=== PATIENT | female | born 1945 | race Caucasian/White ===

== ENCOUNTER 2017-07-04 13:12 | Observation (INO) | payer MEDICARE ==
[~2017-07-04] VITALS: Ht 162.6 cm; Wt 74.8 kg
[~2017-07-04 13:12] MED LIST: ALBU8.5H8 IH; LEVO500T2 PO; METH4TAB3 PO; MOME13HF2 IH; TIOT18CA3 IH
[2017-07-04] MEDS ORDERED: ONDANSETRON HCL 4 MG/2 ML VIAL ONE ×2 (13:35→16:30)
[2017-07-04] MEDS ORDERED: SODIUM CHLORIDE 0.9% 1000ML 1,000 ML IV ONE ×2 (13:35→23:49)
[2017-07-04 14:04] LABS: BASOPHILS % (AUTO) 0.3 % (0.0-5.0); EOSINOPHILS % (AUTO) 0.2 % (0.0-8.0); HEMATOCRIT 46.9 % (36-48); LYMPHOCYTES % (AUTO) 8.6 % (21.0-51.0); MEAN CORPUSCULAR HEMOGLOBIN 30.7 pg (27.0-33.0); MEAN CORPUSCULAR HGB CONC 33.1 g/dL (32.0-36.0); MEAN CORPUSCULAR VOLUME 92.7 fL (79-99); MONOCYTES % (AUTO) 4.8 % (3.0-13.0); NEUTROPHILS % (AUTO) 86.1 % (40.0-77.0); PLATELET COUNT (AUTO) 342 K/uL (130-400); RED BLOOD CELL COUNT(AUTO) 5.06 MIL/uL (4.00-5.50); RED CELL DISTRIBUTION WIDTH 13.9 % (11.0-15.5)
[2017-07-04 14:12] LABS: CREATININE 0.8 mg/dL (0.5-1.5)
[2017-07-04 14:18] LABS: ALBUMIN 4.1 g/dL (3.5-5.0); BILIRUBIN,TOTAL 0.4 mg/dL (0.2-1.0); TOTAL PROTEIN, SERUM 7.6 g/dL (6.0-8.3)
[2017-07-04] MEDS ORDERED: SODIUM CHLORIDE 0.9% 1000ML 2,000 ML IV ONE (14:18)
[2017-07-04 14:31] LABS: CREATINE KINASE MB 2.2 ng/mL (0.5-3.6)
[2017-07-04] MEDS ORDERED: CEFTRIAXONE SODIUM 1 GM ONE (14:56)
[2017-07-04 15:03] LABS: APPEARANCE,URINE Clear (CLEAR); BILIRUBIN,URINE Negative (NEGATIVE); COLOR,URINE Yellow (YELLOW); GLUCOSE, URINE (UA) 250 mg/dL (NEGATIVE); KETONES,URINE Negative (NEGATIVE); LEUKOCYTE ESTERASE ,URINE Trace (NEGATIVE); NITRATE,URINE Negative (NEGATIVE); OCCULT BLOOD,URINE Trace (NEGATIVE); PH,URINE 7.5 (5.0-8.0); PROTEIN,URINE Negative (NEGATIVE); UROBILINOGEN,URINE 0.2 mg/dL (0.2-1.0)
[2017-07-04 15:27] LABS: BACTERIA,URINE Few /HPF (None Seen); RBC,URINE None Seen /HPF (0-1); SQUAMOUS EPITHELIAL CELL,UR 0-2 /LPF (0-2); WBC,URINE None Seen /HPF (0-1)
[2017-07-04] MEDS ORDERED: LEVOFLOXACIN 750 MG/D5W 150 ML 150 ML ONE (16:30)
[2017-07-04] MEDS ORDERED: MAG HYDROX/AL HYDROX/SIMETH ES 30 ML SUSP UDCUP PO PRN (16:45)
[2017-07-04] MEDS ORDERED: ACETAMINOPHEN 325 MG TAB PO PRN ×2 (16:45)
[2017-07-04] MEDS ORDERED: ONDANSETRON HCL 4 MG/2 ML VIAL IV PRN (16:45)
[2017-07-04] MEDS ORDERED: GUAIFENESIN-DM 200/20 MG 10 ML PO PRN (16:45)
[2017-07-04] MEDS ORDERED: LACTULOSE 20 GM/30 ML UDCUP PO PRN (16:45)
[2017-07-04 21:35] VITALS: BP 177/77
[2017-07-04] MEDS ORDERED: HYDRALAZINE HCL 20 MG/ML VIAL ONE (22:37)
[2017-07-04] MEDS: OSELTAMIVIR PHOSPHATE 75 MG CAP PO SCH (22:39)
[2017-07-04] MEDS ORDERED: HYDRALAZINE HCL 20 MG/ML VIAL IV PRN (22:45)
[2017-07-04 23:10] VITALS: BP 172/70
[2017-07-04] MEDS ORDERED: MORPHINE SULFATE 2 MG/ML 1ML SYG IVP PRN ×2 (23:45)
[2017-07-04] MEDS ORDERED: POTASSIUM CHLORIDE 20 MEQ ERTAB PO PRN (23:45)
[2017-07-04] MEDS ORDERED: POTASSIUM CHLORIDE 10% ELIXIR 20 MEQ/15 ML UDCUP PO PRN (23:45)
[2017-07-04] MEDS: SODIUM CHLORIDE 0.9% 1000ML 1,000 ML IV SCH (23:45)
[2017-07-04] MEDS ORDERED: POTASSIUM CHLORIDE 20MEQ/100ML 100 ML IV PRN (23:45)
[2017-07-04] MEDS ORDERED: SODIUM CHLORIDE 0.9% 1000ML 1,000 ML IV SCH (23:45)
[2017-07-04] MEDS ORDERED: IPRATROPIUM/ALBUTEROL SULFATE 3 ML SOLUTION IH PRN (23:45)
[2017-07-04] MEDS ORDERED: LIDOCAINE HCL-MPF 1% 2ML VIAL IVP PRN (23:45)
[2017-07-05 03:20] VITALS: BP 121/66
[2017-07-05 05:06] LABS: HEMATOCRIT 41.9 % (36-48); MEAN CORPUSCULAR HEMOGLOBIN 31.4 pg (27.0-33.0); MEAN CORPUSCULAR HGB CONC 34.2 g/dL (32.0-36.0); NUCLEATED RED BLOOD CELLS 0.1 % (0.0-0.19); PLATELET COUNT (AUTO) 336 K/uL (130-400); RED BLOOD CELL COUNT(AUTO) 4.56 MIL/uL (4.00-5.50); RED CELL DISTRIBUTION WIDTH 13.9 % (11.0-15.5)
[2017-07-05 05:23] LABS: ALANINE AMINOTRANSFERASE 20 U/L (12-78); ALBUMIN 3.5 g/dL (3.5-5.0); ASPARTATE AMINOTRANSFERASE 19 U/L (10-37); BILIRUBIN,TOTAL 0.5 mg/dL (0.2-1.0); CARBON DIOXIDE 27 mmol/L (21-32); CHLORIDE 102 mmol/L (101-111); CREATINE KINASE MB 4.1 ng/mL (0.5-3.6); CREATINE KINASE, TOTAL 69 U/L (21-232); CREATININE 0.8 mg/dL (0.5-1.5); GLOMERULAR FILTR. RATE CALC 75 mL/min (>60); GLUCOSE,RANDOM 124 mg/dL (70-105); LIPASE 205 U/L (114-286); MYOGLOBIN 48 ng/mL (10-92); POTASSIUM 3.8 mmol/L (3.5-5.1); SODIUM SERUM 140 mmol/L (136-145); TOTAL PROTEIN, SERUM 6.6 g/dL (6.0-8.3); TROPONIN I < 0.04 ng/mL (0.00-0.06); UREA NITROGEN, BLOOD 10 mg/dL (7-18)
[2017-07-05 06:00] LABS: BAND NEUTROPHILS % (MANUAL) 9 % (0-2); LYMPHOCYTES % (MANUAL) 17 % (22-44); MAN.DIFF COMMENT-IMPRESSION MANUAL DIFFERENTIAL; MONOCYTES % (MANUAL) 2 % (2-9); PLATELET MORPHOLOGY COMMENT ADEQUATE; REACTIVE LYMPHOCYTES 1 % (0-0); SEGMENTED NEUTROPHILS % 71 % (40-70)
[2017-07-05 08:00] VITALS: BP 125/52
[2017-07-05 08:27] LABS: HEMATOCRIT 42.8 % (36-48); MEAN CORPUSCULAR HEMOGLOBIN 31.4 pg (27.0-33.0); MEAN CORPUSCULAR HGB CONC 34.3 g/dL (32.0-36.0); MEAN CORPUSCULAR VOLUME 91.4 fL (79-99); PLATELET COUNT (AUTO) 334 K/uL (130-400); RED BLOOD CELL COUNT(AUTO) 4.68 MIL/uL (4.00-5.50); RED CELL DISTRIBUTION WIDTH 14.1 % (11.0-15.5); WHITE BLOOD COUNT (AUTO) 14.5 K/uL (4.8-10.8)
[2017-07-05 08:59] LABS: CARBON DIOXIDE 27 mmol/L (21-32); CHLORIDE 105 mmol/L (101-111); CREATINE KINASE MB 3.9 ng/mL (0.5-3.6); CREATINE KINASE, TOTAL 70 U/L (21-232); GLOMERULAR FILTR. RATE CALC 58 mL/min (>60); GLUCOSE,RANDOM 121 mg/dL (70-105); MYOGLOBIN 63 ng/mL (10-92); POTASSIUM 3.6 mmol/L (3.5-5.1); SODIUM SERUM 141 mmol/L (136-145); TROPONIN I < 0.04 ng/mL (0.00-0.06); UREA NITROGEN, BLOOD 12 mg/dL (7-18)
[2017-07-05] MEDS ORDERED: FORMOTEROL IH SCH (09:00)
[2017-07-05] MEDS ORDERED: SUB TO IPRATROPIUM 0.5MG/2.5ML PER P&T IH SCH (09:00)
[2017-07-05] MEDS ORDERED: [UNRECOGNIZED DRUG - OTHER] IH SCH (09:00)
[2017-07-05] MEDS ORDERED: MOMETASONE IH SCH (09:00)
[2017-07-05] MEDS: OSELTAMIVIR PHOSPHATE 75 MG CAP PO SCH ×2 (09:07→20:21)
[2017-07-05 09:14] LABS: BAND NEUTROPHILS % (MANUAL) 4 % (0-2); LYMPHOCYTES % (MANUAL) 7 % (22-44); MAN.DIFF COMMENT-IMPRESSION MANUAL DIFFERENTIAL; MONOCYTES % (MANUAL) 7 % (2-9); PLATELET MORPHOLOGY COMMENT ADEQUATE; REACTIVE LYMPHOCYTES 2 % (0-0); SEGMENTED NEUTROPHILS % 80 % (40-70)
[2017-07-05] MEDS: SODIUM CHLORIDE 0.9% 1000ML 1,000 ML IV SCH ×2 (09:45→19:45)
[2017-07-05] MEDS: FAMOTIDINE/PF 20 MG/2 ML VIAL IV SCH (10:11)
[2017-07-05 11:42] VITALS: BP 115/72
[2017-07-05] MEDS: LEVOFLOXACIN 500 MG/D5W 100 ML 100 ML IV SCH (13:21)
[2017-07-05 16:41] VITALS: BP 147/76
[2017-07-05 19:10] VITALS: BP 113/68
[2017-07-05] MEDS: IPRATROPIUM/ALBUTEROL SULFATE 3 ML SOLUTION IH SCH ×2 (19:15→19:17)
[2017-07-05] MEDS: BUDESONIDE 0.5 MG/2 ML INH IH SCH (19:15)
[2017-07-05 23:15] VITALS: BP 154/68
[2017-07-06 03:25] VITALS: BP 124/77
[2017-07-06] MEDS: SODIUM CHLORIDE 0.9% 1000ML 1,000 ML IV SCH (05:45)
[2017-07-06] MEDS: IPRATROPIUM/ALBUTEROL SULFATE 3 ML SOLUTION IH SCH ×2 (06:47→11:38)
[2017-07-06 06:49] LABS: HEMATOCRIT 39.8 % (36-48); MEAN CORPUSCULAR HEMOGLOBIN 32.6 pg (27.0-33.0); MEAN CORPUSCULAR HGB CONC 35.6 g/dL (32.0-36.0); MEAN CORPUSCULAR VOLUME 91.6 fL (79-99); PLATELET COUNT (AUTO) 349 K/uL (130-400); RED BLOOD CELL COUNT(AUTO) 4.35 MIL/uL (4.00-5.50); RED CELL DISTRIBUTION WIDTH 14.1 % (11.0-15.5); WHITE BLOOD COUNT (AUTO) 9.1 K/uL (4.8-10.8)
[2017-07-06] MEDS: BUDESONIDE 0.5 MG/2 ML INH IH SCH (07:01)
[2017-07-06 07:20] LABS: CREATININE 0.8 mg/dL (0.5-1.5); POTASSIUM 3.7 mmol/L (3.5-5.1)
[2017-07-06] MEDS: FAMOTIDINE/PF 20 MG/2 ML VIAL IV SCH (07:54)
[2017-07-06] MEDS: OSELTAMIVIR PHOSPHATE 75 MG CAP PO SCH (07:54)
[2017-07-06 08:00] VITALS: BP 143/75
[2017-07-06 12:00] VITALS: BP 117/57
[2017-07-06] MEDS: LEVOFLOXACIN 500 MG/D5W 100 ML 100 ML IV SCH (13:00)
== END 2017-07-06 13:30 | disposition home or self-care (01) ==
LOC: EDH 13:12 → EDHIP 16:33 → 3DH 21:24
PROVIDERS: ADMIT Family Medicine; ATTEND Family Medicine
DX: R10.9 Unspecified abdominal pain (principal); K52.9 Noninfective gastroenteritis and colitis, unspecified; J44.9 Chronic obstructive pulmonary disease, unspecified; Z88.8 Allergy status to other drugs, medicaments and biological substances; F17.210 Nicotine dependence, cigarettes, uncomplicated; J96.10 Chronic respiratory failure, unspecified whether with hypoxia or hypercapnia
CPT/HCPCS: 36415 ×3; 70450; 71045; 74176; 80048 ×2; 80053 ×2; 81001; 82550 ×3; 82553 ×3; 82948; 83605 ×2; 83690 ×2; 83874 ×2; 84484 ×3; 85025 ×3; 85027; 87040 ×2; 87804 ×2; 93005 ×5; 94640 ×4; 94664; 96365; 96375 ×2; 96376; 99285; G0378 ×45; J0360; J0696; J1956 ×2; J2405 ×3; J3490 ×2; J7030 ×3

== ENCOUNTER → 2018-06-02 | Outpatient (CLI) | payer MEDICARE ==
[~2018-06-02] MED LIST changes: -ALBU8.5H8 IH; +ALBU90AE IH; +FLUT1BLS3 IH; -LEVO500T2 PO; +LORA10TA7 PO; -METH4TAB3 PO; -MOME13HF2 IH; +THEO400T3 PO; -TIOT18CA3 IH
[2018-06-02 13:15] LABS: CREATININE 0.8 mg/dL (0.5-1.5)
== END | disposition home or self-care (01) ==
LOC: LAB 12:29
PROVIDERS: ATTEND Surgery
DX: K57.00 Diverticulitis of small intestine with perforation and abscess without bleeding (principal)
CPT/HCPCS: 36415; 82565; 84520

== ENCOUNTER → 2018-06-04 | Outpatient (CLI) | payer MEDICARE ==
[~2018-06-04] MED LIST changes: +IOHEXOL-350 75 ML VIAL IV ONE
== END | disposition home or self-care (01) ==
LOC: RAH 07:57
PROVIDERS: ATTEND Surgery
DX: I71.4 Abdominal aortic aneurysm, without rupture (principal); M51.36 Other intervertebral disc degeneration, lumbar region; M47.816 Spondylosis without myelopathy or radiculopathy, lumbar region; I70.8 Atherosclerosis of other arteries; N28.1 Cyst of kidney, acquired
CPT/HCPCS: 74177; Q9967

== ENCOUNTER → 2018-07-03 | Outpatient (CLI) | payer MEDICARE | END | disposition home or self-care (01) | LOC: RAH 08:48 | PROVIDERS: ATTEND Surgery | DX: I71.4 Abdominal aortic aneurysm, without rupture (principal); N28.1 Cyst of kidney, acquired | CPT/HCPCS: 74177; Q9967 ==

== ENCOUNTER 2018-07-27 07:00 | Day surgery (SDC) | payer MEDICARE ==
[2018-07-27] VITALS (9 sets, daily range): BP systolic 106–141; BP diastolic 40–64
[~2018-07-27] VITALS: Ht 160 cm; Wt 63.9 kg
[~2018-07-27 07:00] MED LIST changes: -IOHEXOL-350 75 ML VIAL IV ONE; +SODIUM CHLORIDE 0.9% 1000ML 1,000 ML IV ONE
[2018-07-27] MEDS ORDERED: PROPOFOL 10 MG/ML 20ML VIAL IV ONE (08:43)
[2018-07-27] MEDS ORDERED: PHENYLEPHRINE HCL 10 MG/ML 1ML VIAL IV ONE (09:01)
== END 2018-07-27 10:00 | disposition home or self-care (01) ==
LOC: ENDO 07:00 → DAH 07:00 → ENDO 10:00
PROVIDERS: ATTEND Surgery
DX: K57.33 Diverticulitis of large intestine without perforation or abscess with bleeding (principal); J44.9 Chronic obstructive pulmonary disease, unspecified
CPT/HCPCS: 45378; 74270; 93005; J2370; J2704; J7030

== ENCOUNTER 2018-09-18 16:11 | Emergency (ER) | payer MEDICARE ==
[~2018-09-18 16:11] MED LIST changes: -SODIUM CHLORIDE 0.9% 1000ML 1,000 ML IV ONE
[2018-09-18 17:49] LABS: CREATININE 0.7 mg/dL (0.5-1.5); POTASSIUM 4.2 mmol/L (3.5-5.1)
[2018-09-18 17:55] LABS: ALBUMIN 3.3 g/dL (3.5-5.0); BILIRUBIN,TOTAL 0.2 mg/dL (0.2-1.0); TOTAL PROTEIN, SERUM 7.3 g/dL (6.0-8.3)
[2018-09-18 18:21] LABS: BASOPHILS % (AUTO) 0.2 % (0.0-5.0); EOSINOPHILS % (AUTO) 0.4 % (0.0-8.0); HEMATOCRIT 41.9 % (36-48); LYMPHOCYTES % (AUTO) 17.4 % (21.0-51.0); MEAN CORPUSCULAR HEMOGLOBIN 30.6 pg (27.0-33.0); MEAN CORPUSCULAR VOLUME 90.2 fL (79-99); MONOCYTES % (AUTO) 6.6 % (3.0-13.0); NEUTROPHILS % (AUTO) 75.4 % (40.0-77.0); NUCLEATED RED BLOOD CELLS 0.1 % (0.0-0.19); PLATELET COUNT (AUTO) 386 K/uL (130-400); RED BLOOD CELL COUNT(AUTO) 4.65 MIL/uL (4.00-5.50); RED CELL DISTRIBUTION WIDTH 16.1 % (11.0-15.5); WHITE BLOOD COUNT (AUTO) 13.9 K/uL (4.8-10.8)
[2018-09-18] MEDS ORDERED: IOHEXOL-350 75 ML VIAL IV ONE (18:34)
[2018-09-18 18:36] LABS: APPEARANCE,URINE Clear (CLEAR); BILIRUBIN,URINE Negative (NEGATIVE); COLOR,URINE Yellow (YELLOW); GLUCOSE, URINE (UA) Negative (NEGATIVE); KETONES,URINE Negative (NEGATIVE); LEUKOCYTE ESTERASE ,URINE Large (NEGATIVE); NITRATE,URINE Negative (NEGATIVE); OCCULT BLOOD,URINE Nonhemolyzed Trace (NEGATIVE); PH,URINE 5.5 (5.0-8.0); PROTEIN,URINE Negative (NEGATIVE); UROBILINOGEN,URINE 0.2 mg/dL (0.2-1.0)
[2018-09-18 18:49] LABS: BACTERIA,URINE Rare /HPF (None Seen)
[2018-09-18 18:50] LABS: SQUAMOUS EPITHELIAL CELL,UR Rare /HPF (0-2)
== END 2018-09-18 19:11 | disposition home or self-care (01) ==
LOC: EDH 16:11
DX: N39.0 Urinary tract infection, site not specified (principal); J45.909 Unspecified asthma, uncomplicated; Z98.890 Other specified postprocedural states; Z72.0 Tobacco use; Z88.8 Allergy status to other drugs, medicaments and biological substances
CPT/HCPCS: 36415; 74176; 80053; 81001; 83690; 85025; 99285; Q9967

== ENCOUNTER 2019-03-22 06:30 | Inpatient (IN) | payer MEDICARE ==
[~2019-03-22] VITALS: Ht 160 cm; Wt 63.5 kg
[2019-03-22] VITALS (17 sets, daily range): BP systolic 127–161; BP diastolic 59–89
[2019-03-22] MEDS ORDERED: TETANUS/DIPHTHERIA TOXOID [ADULT] 0.5 ML VIAL IM ONE (06:40)
[2019-03-22] MEDS ORDERED: ONDANSETRON HCL 4 MG/2 ML VIAL ONE (06:57)
[2019-03-22] MEDS ORDERED: HYDROMORPHONE 1 MG/1 ML AMP ONE (06:58)
[2019-03-22 07:07] LABS: BASOPHILS % (AUTO) 0.8 % (0.0-5.0); LYMPHOCYTES % (AUTO) 26.9 % (21.0-51.0); MEAN CORPUSCULAR HEMOGLOBIN 31.5 pg (27.0-33.0); MEAN CORPUSCULAR HGB CONC 33.7 g/dL (32.0-36.0); MEAN CORPUSCULAR VOLUME 93.6 fL (79-99); NEUTROPHILS % (AUTO) 61.3 % (40.0-77.0); PLATELET COUNT (AUTO) 334 K/uL (130-400); RED BLOOD CELL COUNT(AUTO) 4.17 MIL/uL (4.00-5.50); RED CELL DISTRIBUTION WIDTH 14.3 % (11.0-15.5); WHITE BLOOD COUNT (AUTO) 12.2 K/uL (4.8-10.8)
[2019-03-22 07:11] LABS: CREATININE 0.7 mg/dL (0.5-1.5); POTASSIUM 3.9 mmol/L (3.5-5.1)
[2019-03-22] MEDS ORDERED: LIDOCAINE HCL 1% 20 ML VIAL ONE (07:11)
[2019-03-22] MEDS ORDERED: BUPIVACAINE/PF 0.5% 30ML VIAL ONE (07:11)
[2019-03-22 07:12] LABS: PARTIAL THROMBOPLASTIN TIME 26.3 SEC (26.3-35.5); PROTHROMBIN TIME 10.5 SEC (9.6-11.6)
[2019-03-22 07:13] LABS: APPEARANCE,URINE Clear (CLEAR); BILIRUBIN,URINE Negative (NEGATIVE); COLOR,URINE Yellow (YELLOW); GLUCOSE, URINE (UA) Negative (NEGATIVE); KETONES,URINE Negative (NEGATIVE); LEUKOCYTE ESTERASE ,URINE Large (NEGATIVE); NITRATE,URINE Negative (NEGATIVE); OCCULT BLOOD,URINE Negative (NEGATIVE); PH,URINE 5.5 (5.0-8.0); PROTEIN,URINE Negative (NEGATIVE); UROBILINOGEN,URINE 0.2 mg/dL (0.2-1.0)
[2019-03-22 07:19] LABS: ALBUMIN 3.3 g/dL (3.5-5.0); BILIRUBIN,TOTAL 0.3 mg/dL (0.2-1.0); TOTAL PROTEIN, SERUM 6.6 g/dL (6.0-8.3)
[2019-03-22 07:22] LABS: BACTERIA,URINE Moderate /HPF (None Seen); RBC,URINE 0-1 /HPF (0-1); SQUAMOUS EPITHELIAL CELL,UR Rare /HPF (0-2)
[2019-03-22] MEDS: SODIUM CHLORIDE 0.9% 1000ML 1,000 ML IV SCH ×3 (07:36→22:20)
[2019-03-22] MEDS ORDERED: MORPHINE SULFATE 2 MG/ML 1ML SYG IV PRN (07:45)
[2019-03-22] MEDS ORDERED: LACTULOSE 20 GM/30 ML UDCUP PO PRN (07:45)
[2019-03-22] MEDS ORDERED: HYDRALAZINE HCL 20 MG/ML VIAL IV PRN (07:45)
[2019-03-22 08:26] LABS: HEMOGLOBIN A1C 5.8 % (4.0-6.0)
[2019-03-22] MEDS ORDERED: IPRATROPIUM/ALBUTEROL SULFATE 3 ML SOLUTION IH ONE ×2 (08:55→16:09)
[2019-03-22] MEDS: METOPROLOL TARTRATE 25 MG TAB PO SCH ×2 (09:00→22:19)
[2019-03-22] MEDS: FAMOTIDINE/PF 20 MG/2 ML VIAL IV SCH ×2 (09:00→22:19)
[2019-03-22] MEDS ORDERED: ZOSYN 3.375GM+NS 50ML 50 ML IV ONE ×3 (09:03→15:13)
[2019-03-22] MEDS ORDERED: METOPROLOL TARTRATE 25 MG TAB ONE (09:21)
[2019-03-22] MEDS ORDERED: FAMOTIDINE/PF 20 MG/2 ML VIAL IV ONE (09:21)
[2019-03-22] MEDS ORDERED: SODIUM CHLORIDE 0.9% 1000ML 1,000 ML IV ONE (09:22)
[2019-03-22] MEDS ORDERED: MORPHINE SULFATE 2 MG/ML 1ML SYG ONE (10:39)
[2019-03-22] MEDS ORDERED: MONT10TA24 PO (12:11)
[2019-03-22] MEDS ORDERED: BUDE10.2 PO (12:11)
[2019-03-22] MEDS ORDERED: ALBU8.5H8 PO (12:11)
[2019-03-22] MEDS ORDERED: UMEC62.5 PO (12:11)
[2019-03-22] MEDS ORDERED: LEVO5TAB13 PO (12:11)
[2019-03-22] MEDS ORDERED: GABA-531 PO (12:11)
[2019-03-22] MEDS ORDERED: TRAM50TA4 PO (12:11)
[2019-03-22] MEDS ORDERED: ZOSYN 3.375GM+NS 50ML 50 ML IV SCH (13:00)
[2019-03-22] MEDS: MORPHINE SULFATE 4 MG/1ML SYG IV PRN (14:02)
[2019-03-22] MEDS ORDERED: CEFAZOLIN SODIUM 1 GM VIAL IVP PRN (15:15)
[2019-03-22] MEDS ORDERED: LACTATED RINGERS 1000ML 1,000 ML IV ONE (15:35)
[2019-03-22] MEDS ORDERED: IPRATROPIUM/ALBUTEROL SULFATE 3 ML SOLUTION IH STA (16:07)
[2019-03-22] MEDS ORDERED: FENTANYL CITRATE PF 50 MCG/1 ML 2ML VIAL IVP ONE (16:15)
[2019-03-22] MEDS ORDERED: SUCCINYLCHOLINE 200MG/10ML SYR ONE (16:17)
[2019-03-22] MEDS ORDERED: ROCURONIUM 10MG/1ML SYR 10 MG/ML ML ONE (16:17)
[2019-03-22] MEDS ORDERED: PROPOFOL 10 MG/ML 20ML VIAL IV ONE (16:17)
[2019-03-22] MEDS ORDERED: LIDOCAINE PF 2% 5ML ABBOJECT ONE (16:17)
[2019-03-22] MEDS ORDERED: FENTANYL CITRATE PF 50 MCG/1 ML 2ML VIAL ONE ×3 (16:19→21:15)
[2019-03-22] MEDS ORDERED: ROPIVACAINE 0.5% 5MG/ML 30ML IJ ONE ×2 (16:22→18:56)
[2019-03-22] MEDS: ZOSYN 3.375GM+NS 50ML 50 ML IV SCH ×2 (16:54→22:19)
--- NOTE | 2019-03-22 17:02 | NUR ---
PT. IS SLEEPING RESTING COMFORTABLY AFTER 25 MCG OF FENTANYL IVP.
--- NOTE | 2019-03-22 18:15 | NUR ---
RECEIVED REPORT FROM SERGEY EVERETT. PT RESTING IN BED, AWAKE AND ALERT. PT DENIES PAIN, RESTING WELL. Addendum: 03/22/19 at 1838 by OLY KPAOOR RN RN Amended: Links added.
[2019-03-22] MEDS ORDERED: KETAMINE 50MG/ML SYRINGE 50 MG/ML DISP.SYRIN IV ONE (18:57)
[2019-03-22] MEDS ORDERED: MIDAZOLAM HCL 1 MG/ML 2ML VIAL ONE (18:59)
[2019-03-22] MEDS ORDERED: GLYCOPYRROLATE 1 MG/5 ML SYRINGE ONE (19:00)
[2019-03-22] MEDS ORDERED: CEFAZOLIN SODIUM 1 GM VIAL ONE (19:56)
[2019-03-22] MEDS ORDERED: NEOSTIGMINE 5MG/5ML SYR IV ONE (20:30)
[2019-03-22] MEDS ORDERED: LIDOCAINE HCL MPF 1% 5ML VIAL ONE (20:35)
[2019-03-22] MEDS ORDERED: LIDOCAINE HCL-MPF 1% 2ML VIAL IV PRN (21:00)
[2019-03-22] MEDS ORDERED: POTASSIUM CHLORIDE 10% ELIXIR 20 MEQ/15 ML UDCUP PO PRN (21:00)
[2019-03-22] MEDS ORDERED: DiphenhydrAMINE HCL 50 MG/ML VIAL IVP PRN (21:00)
[2019-03-22] MEDS ORDERED: TEMAZEPAM 15 MG CAPSULE PO PRN (21:00)
[2019-03-22] MEDS ORDERED: POTASSIUM CHLORIDE 20MEQ/100ML 100 ML IV PRN (21:00)
[2019-03-22] MEDS ORDERED: FERROUS FUMARATE 324 MG TABLET PO PRN (21:00)
[2019-03-22] MEDS ORDERED: CALCIUM CARBONATE 500 MG TABLET PO PRN (21:00)
[2019-03-22] MEDS ORDERED: POTASSIUM CHLORIDE 20 MEQ ERTAB PO PRN (21:00)
[2019-03-22] MEDS ORDERED: DIPHENHYDRAMINE HCL 25 MG CAPSULE PO PRN (21:00)
[2019-03-22] MEDS: ONDANSETRON HCL 4 MG/2 ML VIAL IV PRN (22:19)
[2019-03-22] MEDS: HYDROCODONE/ACETAMINOPHEN 5/325 MG TAB PO PRN (22:20)
[2019-03-23] VITALS (7 sets, daily range): BP systolic 84–134; BP diastolic 45–84
[2019-03-23] MEDS: MORPHINE SULFATE 4 MG/1ML SYG IV PRN ×2 (00:42→22:54)
[2019-03-23] MEDS ORDERED: SUB TO ALBUTEROL 2.5MG/3ML NEBULES PER P&T IH PRN (00:45)
[2019-03-23] MEDS: SODIUM CHLORIDE 0.9% 1000ML 1,000 ML IV SCH ×4 (03:14→16:51)
[2019-03-23] MEDS: HYDROCODONE/ACETAMINOPHEN 5/325 MG TAB PO PRN ×4 (03:45→20:29)
[2019-03-23] MEDS ORDERED: BUDESONIDE 0.5 MG/2 ML INH IH ONE (04:08)
[2019-03-23] MEDS ORDERED: ALBUTEROL SULFATE 0.083% 2.5 MG/3 ML INH IH ONE ×2 (04:08→10:15)
[2019-03-23] MEDS ORDERED: ALBUTEROL SULFATE 0.083% 2.5 MG/3 ML INH IH PRN (04:15)
[2019-03-23 05:02] LABS: HEMATOCRIT 37.9 % (36-48); MEAN CORPUSCULAR HEMOGLOBIN 31.4 pg (27.0-33.0); MEAN CORPUSCULAR HGB CONC 33.7 g/dL (32.0-36.0); PLATELET COUNT (AUTO) 342 K/uL (130-400); RED BLOOD CELL COUNT(AUTO) 4.07 MIL/uL (4.00-5.50); RED CELL DISTRIBUTION WIDTH 14.2 % (11.0-15.5)
[2019-03-23 05:11] LABS: CREATININE 0.8 mg/dL (0.5-1.5)
[2019-03-23] MEDS: ZOSYN 3.375GM+NS 50ML 50 ML IV SCH ×3 (05:14→20:28)
[2019-03-23] MEDS: METOPROLOL TARTRATE 25 MG TAB PO SCH ×2 (08:00→20:38)
[2019-03-23] MEDS: FAMOTIDINE/PF 20 MG/2 ML VIAL IV SCH ×2 (08:00→20:27)
[2019-03-23] MEDS: TRAMADOL HCL 50 MG TABLET PO SCH ×3 (08:01→20:28)
[2019-03-23] MEDS: ENOXAPARIN SODIUM 40 MG/0.4 ML SYRINGE SQ SCH (08:01)
[2019-03-23] MEDS: LEVOCETIRIZINE DIHYDROCHLORIDE 5 MG PO SCH (08:39)
[2019-03-23] MEDS: BUDESONIDE 0.5 MG/2 ML INH IH SCH ×2 (09:00→19:15)
[2019-03-23] MEDS ORDERED: SUB PER P&T FOR ASTHMA OR COPD RECOMMENDATION IH SCH (09:00)
[2019-03-23] MEDS: ONDANSETRON HCL 4 MG/2 ML VIAL IV PRN (10:34)
[2019-03-23] MEDS: KETOROLAC TROMETHAMINE 15MG/ML IV PRN ×2 (10:35→18:35)
[2019-03-23] MEDS ORDERED: UMECLIDINIUM BROMIDE PO SCH (12:00)
[2019-03-23] MEDS ORDERED: IPRATROPIUM/ALBUTEROL SULFATE 3 ML SOLUTION IH SCH (12:00)
[2019-03-23] MEDS: IPRATROPIUM/ALBUTEROL SULFATE 3 ML SOLUTION IH SCH ×3 (13:47→22:00)
--- NOTE | 2019-03-23 15:22 | NUR ---
DC PLAN PER PATIENT SHE IS INDEPENDENT, LIVES WITH SPOUSE, NO PROVIDER, AND HAS NEBULIZER AND OXYGEN. NEW REFERRAL FOR SNF PER MD, OPTIONS GIVEN TO PATIENT. CARLENE SIGNED, [facility] TO BE SENT REFERRAL. DME TO BE SET UP AFTER SNF FOR HOME USE. Addendum: 03/23/19 at 1525 by MARK JOSHUA RN CM Amended: Links added.
--- NOTE | 2019-03-23 16:43 | NUR ---
CM NOTE [facility]LENE SIGNED, REFERRAL SENT TO [facility]. ASCHI ZULETA, [facility] BANANA RIPENING ROOM SUPERVISOR MADE AWARE. PENDING REP TO SEE PATIENT
[2019-03-23] MEDS: METHYLPREDNISOLONE SOD SUCC 40MG/ML 1ML IVP SCH (20:28)
[2019-03-23] MEDS: GABAPENTIN 300 MG CAPSULE PO SCH (20:28)
[2019-03-23] MEDS: MONTELUKAST SODIUM 10 MG TAB PO SCH (20:28)
[2019-03-24] VITALS (7 sets, daily range): BP systolic 111–131; BP diastolic 51–75
[2019-03-24] MEDS: HYDROCODONE/ACETAMINOPHEN 5/325 MG TAB PO PRN ×4 (00:17→13:12)
[2019-03-24] MEDS: IPRATROPIUM/ALBUTEROL SULFATE 3 ML SOLUTION IH SCH ×6 (01:25→22:01)
[2019-03-24] MEDS: ZOSYN 3.375GM+NS 50ML 50 ML IV SCH (05:18)
[2019-03-24] MEDS: MORPHINE SULFATE 4 MG/1ML SYG IV PRN (05:20)
[2019-03-24 05:35] LABS: HEMATOCRIT 33.7 % (36-48); MEAN CORPUSCULAR HEMOGLOBIN 31.8 pg (27.0-33.0); MEAN CORPUSCULAR HGB CONC 33.9 g/dL (32.0-36.0); NUCLEATED RED BLOOD CELLS 0.1 % (0.0-0.19); PLATELET COUNT (AUTO) 307 K/uL (130-400); RED BLOOD CELL COUNT(AUTO) 3.59 MIL/uL (4.00-5.50); RED CELL DISTRIBUTION WIDTH 13.8 % (11.0-15.5); WHITE BLOOD COUNT (AUTO) 13.2 K/uL (4.8-10.8)
[2019-03-24 05:56] LABS: CREATININE 0.9 mg/dL (0.5-1.5)
[2019-03-24] MEDS: BUDESONIDE 0.5 MG/2 ML INH IH SCH ×2 (06:34→18:48)
[2019-03-24] MEDS: LEVOCETIRIZINE DIHYDROCHLORIDE 5 MG PO SCH (09:00)
[2019-03-24] MEDS: METOPROLOL TARTRATE 25 MG TAB PO SCH ×2 (09:00→20:46)
[2019-03-24] MEDS: TRAMADOL HCL 50 MG TABLET PO SCH ×2 (12:27→20:46)
[2019-03-24] MEDS: METHYLPREDNISOLONE SOD SUCC 40MG/ML 1ML IVP SCH ×2 (12:29→20:37)
[2019-03-24] MEDS ORDERED: LEVOFLOXACIN 500 MG/D5W 100 ML 100 ML IV SCH (12:30)
[2019-03-24] MEDS: ENOXAPARIN SODIUM 40 MG/0.4 ML SYRINGE SQ SCH (12:31)
--- NOTE | 2019-03-24 14:21 | NUR ---
CM Note: [facility] pending ins auth CM spoke to Sushma w/[facility], updated clinicals received this morning and already forwarded to insurance. Pt pending ins auth at this time. EMS arranged and faxed for today, primary nurse to call [facility] once pt ready to DC. Primary nurse aware. CM to cont to follow up.
[2019-03-24] MEDS: KETOROLAC TROMETHAMINE 15MG/ML IV PRN (20:46)
[2019-03-24] MEDS: GABAPENTIN 300 MG CAPSULE PO SCH (20:46)
[2019-03-24] MEDS: MONTELUKAST SODIUM 10 MG TAB PO SCH (20:46)
[2019-03-24] MEDS: FAMOTIDINE 20MG TAB 20 MG TAB PO SCH (20:46)
[2019-03-25] MEDS: IPRATROPIUM/ALBUTEROL SULFATE 3 ML SOLUTION IH SCH ×6 (01:28→21:53)
[2019-03-25] MEDS: KETOROLAC TROMETHAMINE 15MG/ML IV PRN (03:35)
[2019-03-25 04:00] VITALS: BP 123/52
[2019-03-25 05:38] LABS: BASOPHILS % (AUTO) 0.4 % (0.0-5.0); EOSINOPHILS % (AUTO) 1.8 % (0.0-8.0); HEMATOCRIT 29.2 % (36-48); LYMPHOCYTES % (AUTO) 24.6 % (21.0-51.0); MEAN CORPUSCULAR HGB CONC 34.3 g/dL (32.0-36.0); MEAN CORPUSCULAR VOLUME 93.2 fL (79-99); MONOCYTES % (AUTO) 10.5 % (3.0-13.0); NEUTROPHILS % (AUTO) 62.7 % (40.0-77.0); PLATELET COUNT (AUTO) 289 K/uL (130-400); RED BLOOD CELL COUNT(AUTO) 3.14 MIL/uL (4.00-5.50); RED CELL DISTRIBUTION WIDTH 14.1 % (11.0-15.5); WHITE BLOOD COUNT (AUTO) 9.7 K/uL (4.8-10.8)
[2019-03-25 05:49] LABS: CREATININE 0.8 mg/dL (0.5-1.5); POTASSIUM 3.8 mmol/L (3.5-5.1)
[2019-03-25] MEDS: BUDESONIDE 0.5 MG/2 ML INH IH SCH ×2 (06:14→18:55)
[2019-03-25 07:45] VITALS: BP 115/56
[2019-03-25] MEDS: HYDROCODONE/ACETAMINOPHEN 5/325 MG TAB PO PRN ×3 (08:26→21:27)
[2019-03-25] MEDS: METOPROLOL TARTRATE 25 MG TAB PO SCH ×2 (09:00→21:00)
[2019-03-25] MEDS: LEVOCETIRIZINE DIHYDROCHLORIDE 5 MG PO SCH (09:00)
--- NOTE | 2019-03-25 09:15 | NUR ---
PT NOTE: PATIENT AMBULATED 40FT MOD/MIN ASSISTX2 /C 1 STANDING REST BREAK IN-BETWEEN. PATIENT REQUIRES CONSTANT VC'S AND TACTILE CUES TO MAINTAIN SAFE USE OF AD AND PWB STATUS. PATIENT INSTRUCTED ON IMPORTANCE OF FOLLOWING GAIT PATTERN AND PWB STATUS FOR SAFE RECOVERY S/P SX. PATIENT WAS INSTRUCTED TO USE TTWB TO HELP REMIND HER NOT TO PUT DOWN ALL HER WEIGHT DOWN ON HER RLE. Addendum: 03/25/19 at 1139 by LANCE CALDERA PT Amended: Links added.
[2019-03-25 10:49] VITALS: BP 97/52
[2019-03-25] MEDS: LEVOFLOXACIN 250 MG/D5W 50ML IVPB SCH (12:14)
[2019-03-25] MEDS: TRAMADOL HCL 50 MG TABLET PO SCH ×2 (12:15→21:27)
[2019-03-25] MEDS: FAMOTIDINE 20MG TAB 20 MG TAB PO SCH (12:15)
[2019-03-25] MEDS: ENOXAPARIN SODIUM 40 MG/0.4 ML SYRINGE SQ SCH (12:16)
[2019-03-25] MEDS: METHYLPREDNISOLONE SOD SUCC 40MG/ML 1ML IVP SCH ×2 (12:28→21:27)
[2019-03-25 17:54] VITALS: BP 132/60
[2019-03-25 20:11] VITALS: BP 110/64
[2019-03-25] MEDS ORDERED: BISACODYL 10 MG SUPP.RECT RC PRN (21:00)
[2019-03-25] MEDS: GABAPENTIN 300 MG CAPSULE PO SCH (21:27)
[2019-03-25] MEDS: MONTELUKAST SODIUM 10 MG TAB PO SCH (21:27)
[2019-03-25 23:31] VITALS: BP 128/51
[2019-03-26] MEDS: IPRATROPIUM/ALBUTEROL SULFATE 3 ML SOLUTION IH SCH ×5 (02:42→18:17)
[2019-03-26 04:00] VITALS: BP 140/79
[2019-03-26 05:32] LABS: BASOPHILS % (AUTO) 0.4 % (0.0-5.0); HEMATOCRIT 29.9 % (36-48); LYMPHOCYTES % (AUTO) 23.9 % (21.0-51.0); MEAN CORPUSCULAR HEMOGLOBIN 31.8 pg (27.0-33.0); MEAN CORPUSCULAR HGB CONC 33.6 g/dL (32.0-36.0); MEAN CORPUSCULAR VOLUME 94.6 fL (79-99); MONOCYTES % (AUTO) 9.3 % (3.0-13.0); NEUTROPHILS % (AUTO) 64.4 % (40.0-77.0); PLATELET COUNT (AUTO) 299 K/uL (130-400); RED BLOOD CELL COUNT(AUTO) 3.16 MIL/uL (4.00-5.50); RED CELL DISTRIBUTION WIDTH 14.1 % (11.0-15.5); WHITE BLOOD COUNT (AUTO) 9.6 K/uL (4.8-10.8)
[2019-03-26 07:51] VITALS: BP 119/63
[2019-03-26] MEDS: BUDESONIDE 0.5 MG/2 ML INH IH SCH ×2 (08:08→18:24)
[2019-03-26] MEDS: ENOXAPARIN SODIUM 40 MG/0.4 ML SYRINGE SQ SCH (08:50)
[2019-03-26] MEDS: LEVOFLOXACIN 250 MG/D5W 50ML IVPB SCH (08:50)
[2019-03-26] MEDS: METOPROLOL TARTRATE 25 MG TAB PO SCH (08:52)
[2019-03-26] MEDS: FAMOTIDINE 20MG TAB 20 MG TAB PO SCH (08:52)
[2019-03-26] MEDS: HYDROCODONE/ACETAMINOPHEN 5/325 MG TAB PO PRN ×3 (08:53→17:32)
[2019-03-26] MEDS: LEVOCETIRIZINE DIHYDROCHLORIDE 5 MG PO SCH (08:56)
[2019-03-26] MEDS: TRAMADOL HCL 50 MG TABLET PO SCH (08:56)
[2019-03-26] MEDS ORDERED: PREDNISONE 20 MG TABLET PO SCH (09:00)
--- NOTE | 2019-03-26 09:00 | NUR ---
[facility] FOLLOW UP PER [facility] REP, PENDING AUTHORIZATION FOR SNF. WILL FOLLOW UP FOR AUTHORIZATION PERIODICALLY THRU OUT THE DAY.
[2019-03-26 11:00] VITALS: BP 111/56
--- NOTE | 2019-03-26 12:32 | NUR ---
ACCEPTED PER SACHI ZULETA, [facility] REP, AUTHORIZATION OBTAINED FOR SNF. NURSE, MIRTA EVERETT MADE AWARE OF OK TO DISCHARGE TO [facility] ORDERED.
[2019-03-26 16:00] VITALS: BP 124/61
--- NOTE | 2019-03-26 17:06 | NUR ---
discharge reports called to Diana mccabe at [facility]; multiple attempts made at faxing to them that came up busy; pt is going with iv access for iv abx. pt ready to go.
--- NOTE | 2019-03-26 17:27 | NUR ---
pt stated understanding of all d/c instructions on after care for orif of knee; she is ready for transport to [facility]
== END 2019-03-26 18:40 | DRG 481 ==
LOC: EDH 06:30 → EDHIP 07:36 → 4AH 11:01
PROVIDERS: ADMIT Internal Medicine; ATTEND Internal Medicine
PROC: 0QS606Z Reposition Right Upper Femur with Intramedullary Internal Fixation Device, Open Approach (ICD-10-PCS; principal; 2019-03-22 19:07)
DX: S72.141A Displaced intertrochanteric fracture of right femur, initial encounter for closed fracture (principal); N39.0 Urinary tract infection, site not specified; J44.1 Chronic obstructive pulmonary disease with (acute) exacerbation; Z88.8 Allergy status to other drugs, medicaments and biological substances; W06.XXXA Fall from bed, initial encounter; Y93.89 Activity, other specified; Y92.89 Other specified places as the place of occurrence of the external cause; Y99.8 Other external cause status; B96.20 Unspecified Escherichia coli [E. coli] as the cause of diseases classified elsewhere; Z82.0 Family history of epilepsy and other diseases of the nervous system; Z82.3 Family history of stroke; Z82.49 Family history of ischemic heart disease and other diseases of the circulatory system; Z87.891 Personal history of nicotine dependence; Z82.5 Family history of asthma and other chronic lower respiratory diseases; Z83.3 Family history of diabetes mellitus
CPT/HCPCS: 36415; 71045; 73501; 73502; 80048; 80053; 81001; 82550; 82948; 83036; 84145; 84484; 85025; 85027; 85610; 85730; 86850; 86900; 86901; 87077; 87088; 87186; 90714; 93005; 94640; 94664; 97039; G0378; J0330; J0690; J1170; J1650; J1885; J1956; J2001; J2250; J2270; J2405; J2543; J2704; J2710; J2795; J2920; J3010; J3490; J7030; J7120

== ENCOUNTER → 2019-05-26 | Outpatient (CLI) | payer MEDICARE ==
[~2019-05-26] MED LIST changes: +ALBU8.5H8 PO; -ALBU90AE IH; +BUDE10.2 PO; -FLUT1BLS3 IH; +GABA-531 PO; +LEVO5TAB13 PO; -LORA10TA7 PO; +MONT10TA24 PO; -THEO400T3 PO; +TRAM50TA4 PO; +UMEC62.5 PO
== END | disposition home or self-care (01) ==
LOC: SHCH 07:57
PROVIDERS: ATTEND Internal Medicine Cardiovascular Disease
DX: I70.0 Atherosclerosis of aorta (principal); I71.4 Abdominal aortic aneurysm, without rupture
CPT/HCPCS: 93978

== ENCOUNTER 2021-07-08 01:59 | Inpatient (IN) | payer MEDICARE ==
[~2021-07-08] VITALS: Ht 160 cm; Wt 64.9 kg
[~2021-07-08 01:59] MED LIST changes: +MONT-39 PO; -MONT10TA24 PO
[2021-07-08] MEDS ORDERED: MORPHINE 2 MG SYG ONE (02:36)
[2021-07-08] MEDS ORDERED: MORPHINE 2 MG SYG IVP STA (02:36)
[2021-07-08] MEDS ORDERED: ONDANSETRON 4MG INJ ONE (02:36)
[2021-07-08] MEDS ORDERED: ONDANSETRON 4MG INJ IVP ONE ×2 (03:00)
[2021-07-08] MEDS ORDERED: MORPHINE 2 MG SYG IVP ONE ×3 (03:00→08:30)
[2021-07-08 05:05] LABS: BASOPHILS % (AUTO) 0.6 % (0.0-5.0); EOSINOPHILS % (AUTO) 4.7 % (0.0-8.0); HEMATOCRIT 43.4 % (36-48); LYMPHOCYTES % (AUTO) 29.9 % (21.0-51.0); MEAN CORPUSCULAR HEMOGLOBIN 31.5 pg (27.0-33.0); MEAN CORPUSCULAR HGB CONC 32.9 g/dL (32.0-36.0); MEAN CORPUSCULAR VOLUME 95.6 fL (79-99); MONOCYTES % (AUTO) 9.3 % (3.0-13.0); NEUTROPHILS % (AUTO) 54.1 % (40.0-77.0); PLATELET COUNT (AUTO) 337 K/uL (130-400); RED BLOOD CELL COUNT(AUTO) 4.54 MIL/uL (4.00-5.50); RED CELL DISTRIBUTION WIDTH 13.4 % (11.0-15.5); WHITE BLOOD COUNT (AUTO) 9.3 K/uL (4.8-10.8)
[2021-07-08 05:09] LABS: CREATININE 0.9 mg/dL (0.5-1.5); POTASSIUM 3.4 mmol/L (3.5-5.1)
[2021-07-08 05:14] LABS: ALBUMIN 3.4 g/dL (3.5-5.0); BILIRUBIN,TOTAL 0.3 mg/dL (0.2-1.0); TOTAL PROTEIN, SERUM 6.8 g/dL (6.0-8.3)
[2021-07-08 05:25] LABS: APPEARANCE,URINE CLEAR (CLEAR); BILIRUBIN,URINE NEGATIVE (NEGATIVE); COLOR,URINE YELLOW (YELLOW); GLUCOSE, URINE (UA) NEGATIVE (NEGATIVE); KETONES,URINE NEGATIVE (NEGATIVE); LEUKOCYTE ESTERASE ,URINE MODERATE (NEGATIVE); NITRATE,URINE NEGATIVE (NEGATIVE); OCCULT BLOOD,URINE SMALL (NEGATIVE); PH,URINE 5.5 (5.0-8.0); PROTEIN,URINE TRACE mg/dL (NEGATIVE); UROBILINOGEN,URINE 0.2 mg/dL (0.2-1.0)
[2021-07-08 05:31] LABS: BACTERIA,URINE Moderate /HPF (None Seen); SQUAMOUS EPITHELIAL CELL,UR Few /HPF (0-2); WBC,URINE 51-100 /HPF (0-1)
[2021-07-08] MEDS ORDERED: CEFTRIAXONE 1G VIAL IVP ONE (06:00)
[2021-07-08] MEDS ORDERED: KETOROLAC 15MG/ML VIAL (15MG/ML) IV ONE (08:30)
[2021-07-08] MEDS ORDERED: POTASSIUM CHLORIDE 20MEQ/100ML 100 ML IV PRN (08:30)
[2021-07-08 10:24] LABS: CREATININE 0.8 mg/dL (0.5-1.5); MAGNESIUM 1.7 mg/dL (1.80-2.40); POTASSIUM 4.5 mmol/L (3.5-5.1)
[2021-07-08 10:27] LABS: PROTHROMBIN TIME 10.9 SEC (9.6-11.6)
[2021-07-08] MEDS: LACTATED RINGERS 1000ML 1,000 ML IV SCH (10:29)
[2021-07-08] MEDS: PANTOPRAZOLE 40 MG/VIAL IVP SCH (10:29)
[2021-07-08] MEDS ORDERED: PANTOPRAZOLE 40 MG/VIAL IVP ONE (10:30)
[2021-07-08 10:36] LABS: CRP QUANTITATIVE 6.5 mg/L (0.00-9.0)
[2021-07-08 10:43] LABS: THYROID STIMULATING HORMONE 1.27 uIU/mL (0.36-3.74)
[2021-07-08] MEDS: IPRATROPIUM/ALBUTEROL SULFATE 3 ML SOLUTION IH SCH ×4 (12:00→23:13)
[2021-07-08] MEDS: INCRUSE ELLIPTA PO SCH (12:08)
[2021-07-08 15:15] VITALS: BP 127/61
[2021-07-08] MEDS ORDERED: TERI2.4P SQ (16:01)
[2021-07-08] MEDS: CEFTRIAXONE 1G VIAL IVP SCH (17:49)
[2021-07-08] MEDS: HYDROMORPHONE 0.5 MG SYG (0.5MG/0.5ML) IVP PRN (17:50)
[2021-07-08] MEDS: BUDESONIDE 0.5 MG/2 ML INH IH SCH (19:22)
[2021-07-08 20:01] VITALS: BP 122/72
[2021-07-08] MEDS: MONTELUKAST SODIUM 10 MG TAB PO SCH (20:06)
[2021-07-08 23:43] VITALS: BP 120/70
[2021-07-09] VITALS (25 sets, daily range): BP systolic 103–173; BP diastolic 45–84
[2021-07-09] MEDS: HYDROMORPHONE 0.5 MG SYG (0.5MG/0.5ML) IVP PRN ×3 (00:28→13:49)
[2021-07-09] MEDS: CEFTRIAXONE 1G VIAL IVP SCH ×2 (04:28→15:44)
[2021-07-09] MEDS: KETOROLAC 15MG/ML VIAL (15MG/ML) IV PRN (04:29)
[2021-07-09] MEDS: LACTATED RINGERS 1000ML 1,000 ML IV SCH (06:00)
[2021-07-09] MEDS: BUDESONIDE 0.5 MG/2 ML INH IH SCH ×2 (06:43→17:12)
[2021-07-09] MEDS: IPRATROPIUM/ALBUTEROL SULFATE 3 ML SOLUTION IH SCH ×4 (06:43→23:45)
[2021-07-09 07:01] LABS: BASOPHILS % (AUTO) 0.6 % (0.0-5.0); EOSINOPHILS % (AUTO) 2.5 % (0.0-8.0); HEMATOCRIT 38.2 % (36-48); LYMPHOCYTES % (AUTO) 16.4 % (21.0-51.0); MEAN CORPUSCULAR HEMOGLOBIN 31.4 pg (27.0-33.0); MEAN CORPUSCULAR HGB CONC 33.5 g/dL (32.0-36.0); MEAN CORPUSCULAR VOLUME 93.6 fL (79-99); PLATELET COUNT (AUTO) 267 K/uL (130-400); RED BLOOD CELL COUNT(AUTO) 4.08 MIL/uL (4.00-5.50); RED CELL DISTRIBUTION WIDTH 13.3 % (11.0-15.5); WHITE BLOOD COUNT (AUTO) 10.9 K/uL (4.8-10.8)
[2021-07-09] MEDS: PANTOPRAZOLE 40 MG/VIAL IVP SCH (08:11)
[2021-07-09 08:28] LABS: ALBUMIN 3.1 g/dL (3.5-5.0); BILIRUBIN,TOTAL 0.6 mg/dL (0.2-1.0); CREATININE 0.8 mg/dL (0.5-1.5); MAGNESIUM 1.8 mg/dL (1.80-2.40); POTASSIUM 4.1 mmol/L (3.5-5.1); TOTAL PROTEIN, SERUM 6.3 g/dL (6.0-8.3)
[2021-07-09] MEDS: INCRUSE ELLIPTA PO SCH (11:46)
[2021-07-09] MEDS ORDERED: LIDOCAINE PF 100MG/5ML (2%) SYRINGE 5ML ONE (16:56)
[2021-07-09] MEDS ORDERED: ROPIVACAINE 0.5% 5MG/ML 30ML IJ ONE (16:56)
[2021-07-09] MEDS ORDERED: PROPOFOL 10 MG/ML 20ML VIAL IV ONE (16:57)
[2021-07-09] MEDS ORDERED: FENTANYL CITRATE PF 50 MCG/1 ML 2ML VIAL ONE (16:57)
[2021-07-09] MEDS ORDERED: MIDAZOLAM HCL 1 MG/ML 2ML VIAL ONE (16:57)
[2021-07-09] MEDS ORDERED: EPHEDRINE SULFATE 50 MG/ML AMPULE ONE (17:58)
[2021-07-09] MEDS ORDERED: TRANEXAMIC ACID 1000MG/10ML ONE (18:09)
[2021-07-09] MEDS ORDERED: 0.9%NACL 10ML VIAL ONE (18:26)
[2021-07-09] MEDS ORDERED: DEXAMETHASONE SOD PHOSPHATE 10MG/ML 1ML VIAL ONE (18:27)
[2021-07-09] MEDS ORDERED: LABETALOL 20MG VIAL IV ONE (19:19)
[2021-07-09] MEDS: CEFAZOLIN SODIUM 1 GM VIAL IVP SCH (21:03)
[2021-07-09] MEDS: MONTELUKAST SODIUM 10 MG TAB PO SCH (21:03)
[2021-07-10] MEDS: HYDROMORPHONE 0.5 MG SYG (0.5MG/0.5ML) IVP PRN ×3 (00:41→14:04)
[2021-07-10] MEDS: LACTATED RINGERS 1000ML 1,000 ML IV SCH ×2 (02:26→22:41)
[2021-07-10 04:16] VITALS: BP 128/60
[2021-07-10] MEDS ORDERED: CEFAZOLIN SODIUM 1 GM VIAL ONE (04:30)
[2021-07-10] MEDS: CEFAZOLIN SODIUM 1 GM VIAL IVP SCH (04:35)
[2021-07-10] MEDS: CEFTRIAXONE 1G VIAL IVP SCH ×2 (04:35→16:00)
[2021-07-10] MEDS: KETOROLAC 15MG/ML VIAL (15MG/ML) IV PRN ×3 (04:35→20:49)
[2021-07-10] MEDS: IPRATROPIUM/ALBUTEROL SULFATE 3 ML SOLUTION IH SCH ×3 (06:53→18:16)
[2021-07-10] MEDS: BUDESONIDE 0.5 MG/2 ML INH IH SCH ×2 (06:53→18:16)
[2021-07-10] MEDS: PANTOPRAZOLE 40 MG/VIAL IVP SCH (07:46)
[2021-07-10 07:51] VITALS: BP 131/66
[2021-07-10] MEDS: INCRUSE ELLIPTA PO SCH (11:28)
[2021-07-10 12:00] VITALS: BP 125/57
[2021-07-10 16:00] VITALS: BP 125/47
[2021-07-10] MEDS: MONTELUKAST SODIUM 10 MG TAB PO SCH (20:44)
[2021-07-10 21:12] VITALS: BP 131/55
[2021-07-10 23:45] VITALS: BP 128/52
[2021-07-11] MEDS: IPRATROPIUM/ALBUTEROL SULFATE 3 ML SOLUTION IH SCH ×3 (00:06→11:33)
[2021-07-11] MEDS: HYDROMORPHONE 0.5 MG SYG (0.5MG/0.5ML) IVP PRN ×4 (01:26→15:13)
[2021-07-11 04:15] VITALS: BP 133/87
[2021-07-11 04:50] LABS: BASOPHILS % (AUTO) 0.3 % (0.0-5.0); EOSINOPHILS % (AUTO) 0.9 % (0.0-8.0); HEMATOCRIT 33.6 % (36-48); LYMPHOCYTES % (AUTO) 18.4 % (21.0-51.0); MEAN CORPUSCULAR HEMOGLOBIN 31.4 pg (27.0-33.0); MEAN CORPUSCULAR HGB CONC 33.9 g/dL (32.0-36.0); MEAN CORPUSCULAR VOLUME 92.6 fL (79-99); MONOCYTES % (AUTO) 8.5 % (3.0-13.0); NEUTROPHILS % (AUTO) 71.3 % (40.0-77.0); PLATELET COUNT (AUTO) 298 K/uL (130-400); RED BLOOD CELL COUNT(AUTO) 3.63 MIL/uL (4.00-5.50); RED CELL DISTRIBUTION WIDTH 13.2 % (11.0-15.5); WHITE BLOOD COUNT (AUTO) 11.7 K/uL (4.8-10.8)
[2021-07-11] MEDS: CEFTRIAXONE 1G VIAL IVP SCH ×2 (05:00→15:13)
[2021-07-11 05:04] LABS: CREATININE 0.8 mg/dL (0.5-1.5); POTASSIUM 3.5 mmol/L (3.5-5.1)
[2021-07-11 05:08] LABS: ALBUMIN 2.9 g/dL (3.5-5.0); BILIRUBIN,TOTAL 0.4 mg/dL (0.2-1.0)
[2021-07-11] MEDS ORDERED: KCL 20 MEQ ERTAB PO PRN (05:30)
[2021-07-11] MEDS: POTASSIUM CHLORIDE 10% ELIXIR 20 MEQ/15 ML UDCUP PO PRN ×2 (05:32→06:09)
[2021-07-11] MEDS: BUDESONIDE 0.5 MG/2 ML INH IH SCH (07:03)
[2021-07-11 07:54] VITALS: BP 113/52
[2021-07-11] MEDS: PANTOPRAZOLE 40 MG/VIAL IVP SCH (10:29)
[2021-07-11 11:15] VITALS: BP 141/70
[2021-07-11] MEDS: INCRUSE ELLIPTA PO SCH (11:59)
[2021-07-11 16:09] VITALS: BP 152/84
== END 2021-07-11 18:30 | DRG 481 ==
LOC: EDH 01:59 → EDHIP 09:55 → 3AH 14:55
PROVIDERS: ADMIT Internal Medicine; ATTEND Internal Medicine
PROC: 0QH736Z Insertion of Intramedullary Internal Fixation Device into Left Upper Femur, Percutaneous Approach (ICD-10-PCS; principal; 2021-07-09 18:09)
PROC: 3E0T3BZ Introduction of Anesthetic Agent into Peripheral Nerves and Plexi, Percutaneous Approach (ICD-10-PCS; 2021-07-09 18:09)
PROC: 3E0T33Z Introduction of Anti-inflammatory into Peripheral Nerves and Plexi, Percutaneous Approach (ICD-10-PCS; 2021-07-09 18:09)
DX: S72.142A Displaced intertrochanteric fracture of left femur, initial encounter for closed fracture (principal); N39.0 Urinary tract infection, site not specified; I71.4 Abdominal aortic aneurysm, without rupture; J44.9 Chronic obstructive pulmonary disease, unspecified; I10 Essential (primary) hypertension; Z20.822 Contact with and (suspected) exposure to COVID-19; F17.210 Nicotine dependence, cigarettes, uncomplicated; M81.0 Age-related osteoporosis without current pathological fracture; W01.0XXA Fall on same level from slipping, tripping and stumbling without subsequent striking against object, initial encounter; Y93.89 Activity, other specified; Y92.091 Bathroom in other non-institutional residence as the place of occurrence of the external cause; Y99.8 Other external cause status; Z88.8 Allergy status to other drugs, medicaments and biological substances; Z80.49 Family history of malignant neoplasm of other genital organs; Z82.0 Family history of epilepsy and other diseases of the nervous system; Z82.5 Family history of asthma and other chronic lower respiratory diseases; Z83.3 Family history of diabetes mellitus; Z82.3 Family history of stroke; Z82.49 Family history of ischemic heart disease and other diseases of the circulatory system
CPT/HCPCS: 36415; 70450; 71045; 73120; 73502; 73503; 73700; 76700; 80048; 80053; 81001; 82140; 82550; 83735; 83880; 84145; 84443; 84484; 85025; 85610; 85651; 85730; 86140; 87088; 87635; 93005; 94640; 94664; 97039; C9113; G0378; J0690; J0696; J1100; J1170; J1885; J2001; J2250; J2405; J2704; J2795; J3010; J3480; J3490; J7120

== ENCOUNTER 2022-06-15 09:14 | Emergency (ER) | payer MEDICARE ==
[~2022-06-15] VITALS: Ht 160 cm; Wt 56.7 kg
[~2022-06-15 09:14] MED LIST changes: -GABA-531 PO; -LEVO5TAB13 PO; -MONT-39 PO; +TERI2.4P SQ; -TRAM50TA4 PO
[2022-06-15 10:36] VITALS: BP 128/87
== END 2022-06-15 10:44 | disposition home or self-care (01) ==
LOC: EDH 09:14
DX: L98.498 Non-pressure chronic ulcer of skin of other sites with other specified severity (principal); J44.9 Chronic obstructive pulmonary disease, unspecified; M19.90 Unspecified osteoarthritis, unspecified site; Z79.51 Long term (current) use of inhaled steroids; Z90.79 Acquired absence of other genital organ(s)
CPT/HCPCS: 73100

== ENCOUNTER → 2022-06-24 | Outpatient (CLI) | payer MEDICARE ==
[~2022-06-24] MED LIST changes: +LIDOCAINE HCL 4% LTA SOL 4 ML VIAL TP ONE
== END | disposition home or self-care (01) ==
LOC: WHH 10:56
PROVIDERS: ATTEND Family Medicine
DX: S61.502A Unspecified open wound of left wrist, initial encounter (principal); L98.492 Non-pressure chronic ulcer of skin of other sites with fat layer exposed; J45.909 Unspecified asthma, uncomplicated; M19.90 Unspecified osteoarthritis, unspecified site; F17.200 Nicotine dependence, unspecified, uncomplicated; Z79.899 Other long term (current) drug therapy; X58.XXXA Exposure to other specified factors, initial encounter; Y93.89 Activity, other specified; Y92.89 Other specified places as the place of occurrence of the external cause; Y99.8 Other external cause status
CPT/HCPCS: 11042; 87070; A6248; A4450

== ENCOUNTER → 2022-07-01 | Outpatient (CLI) | payer MEDICARE | END | disposition home or self-care (01) | LOC: WHH 09:34 | PROVIDERS: ATTEND Family Medicine | DX: S61.502D Unspecified open wound of left wrist, subsequent encounter (principal); L98.492 Non-pressure chronic ulcer of skin of other sites with fat layer exposed; J45.909 Unspecified asthma, uncomplicated; M19.90 Unspecified osteoarthritis, unspecified site; F17.200 Nicotine dependence, unspecified, uncomplicated; Z79.899 Other long term (current) drug therapy; X58.XXXD Exposure to other specified factors, subsequent encounter | CPT/HCPCS: G0463; A6021; A6197 ==

== ENCOUNTER → 2022-07-08 | Outpatient (CLI) | payer MEDICARE | END | disposition home or self-care (01) | LOC: WHH 09:22 | PROVIDERS: ATTEND Family Medicine | DX: S61.502D Unspecified open wound of left wrist, subsequent encounter (principal); L98.492 Non-pressure chronic ulcer of skin of other sites with fat layer exposed; J45.909 Unspecified asthma, uncomplicated; M19.90 Unspecified osteoarthritis, unspecified site; F17.200 Nicotine dependence, unspecified, uncomplicated; Z79.899 Other long term (current) drug therapy; X58.XXXD Exposure to other specified factors, subsequent encounter | CPT/HCPCS: 11042; A6021; A6197 ==

== ENCOUNTER → 2022-07-15 | Outpatient (CLI) | payer MEDICARE | END | disposition home or self-care (01) | LOC: WHH 09:55 | PROVIDERS: ATTEND Family Medicine | DX: S61.502D Unspecified open wound of left wrist, subsequent encounter (principal); L98.492 Non-pressure chronic ulcer of skin of other sites with fat layer exposed; J44.9 Chronic obstructive pulmonary disease, unspecified; M19.90 Unspecified osteoarthritis, unspecified site; F17.200 Nicotine dependence, unspecified, uncomplicated; Z90.79 Acquired absence of other genital organ(s); Z79.51 Long term (current) use of inhaled steroids; Z79.899 Other long term (current) drug therapy; X58.XXXD Exposure to other specified factors, subsequent encounter | CPT/HCPCS: G0463; A6021; A6197 ==

== ENCOUNTER → 2022-07-22 | Outpatient (CLI) | payer MEDICARE | END | disposition home or self-care (01) | LOC: WHH 10:03 | PROVIDERS: ATTEND Family Medicine | DX: S61.502D Unspecified open wound of left wrist, subsequent encounter (principal); L98.492 Non-pressure chronic ulcer of skin of other sites with fat layer exposed; J44.9 Chronic obstructive pulmonary disease, unspecified; M19.90 Unspecified osteoarthritis, unspecified site; F17.200 Nicotine dependence, unspecified, uncomplicated; Z90.79 Acquired absence of other genital organ(s); Z79.51 Long term (current) use of inhaled steroids; Z79.899 Other long term (current) drug therapy; X58.XXXD Exposure to other specified factors, subsequent encounter | CPT/HCPCS: 11042; A6021; A6196; A4450 ==

== ENCOUNTER → 2022-07-29 | Outpatient (CLI) | payer MEDICARE ==
[~2022-07-29] MED LIST changes: -LIDOCAINE HCL 4% LTA SOL 4 ML VIAL TP ONE
== END | disposition home or self-care (01) ==
LOC: WHH 09:59
PROVIDERS: ATTEND Family Medicine
DX: S61.502D Unspecified open wound of left wrist, subsequent encounter (principal); L98.492 Non-pressure chronic ulcer of skin of other sites with fat layer exposed; J44.9 Chronic obstructive pulmonary disease, unspecified; M19.90 Unspecified osteoarthritis, unspecified site; F17.200 Nicotine dependence, unspecified, uncomplicated; Z90.49 Acquired absence of other specified parts of digestive tract; Z79.51 Long term (current) use of inhaled steroids; Z79.899 Other long term (current) drug therapy; X58.XXXD Exposure to other specified factors, subsequent encounter
CPT/HCPCS: G0463

== ENCOUNTER 2023-07-07 06:02 | Day surgery (SDC) | payer MEDICARE ==
[2023-07-03 09:23] VITALS: BP 142/57; PULSE 61; RESP 16
[2023-07-03 09:31] LABS: BASOPHILS # (AUTO) 0.07 K/uL (0.00-0.20); BASOPHILS % (AUTO) 0.8 % (0.0-5.0); EOSINOPHILS # (AUTO) 0.46 K/uL (0.00-0.70); EOSINOPHILS % (AUTO) 4.9 % (0.0-8.0); HEMATOCRIT 42.1 % (36-48); IMMATURE GRANULOCYTE ABSOLUTE 0.06 K/uL (0-1); LYMPHOCYTES # (AUTO) 2.1 K/uL (1.0-4.8); LYMPHOCYTES % (AUTO) 22.7 % (21.0-51.0); MEAN CORPUSCULAR HEMOGLOBIN 28.9 pg (27.0-33.0); MEAN CORPUSCULAR HGB CONC 33.5 g/dL (32.0-36.0); MEAN CORPUSCULAR VOLUME 86.3 fL (79-99); MONOCYTES # (AUTO) 0.8 K/uL (0.1-1.0); MONOCYTES % (AUTO) 8.4 % (3.0-13.0); NEUTROPHILS # (AUTO) 5.8 K/uL (1.8-7.7); NEUTROPHILS % (AUTO) 62.6 % (40.0-77.0); PLATELET COUNT (AUTO) 418 K/uL (130-400); RED BLOOD CELL COUNT(AUTO) 4.88 MIL/uL (4.00-5.50); RED CELL DISTRIBUTION WIDTH 16.2 % (11.0-15.5); WHITE BLOOD COUNT (AUTO) 9.3 K/uL (4.8-10.8)
[2023-07-03 09:40] LABS: CREATININE 0.8 mg/dL (0.5-1.5); INR 0.94 (0.85-1.15); POTASSIUM 4.8 mmol/L (3.5-5.1); PROTHROMBIN TIME 10.9 SEC (9.6-11.6)
[2023-07-03 09:41] LABS: PARTIAL THROMBOPLASTIN TIME 28.5 SEC (26.3-35.5)
[2023-07-03 10:07] LABS: B-TYPE NATRIURETIC PEPTIDE 177 pg/mL (0-100)
[2023-07-03 10:26] LABS: APPEARANCE,URINE CLEAR (CLEAR); BILIRUBIN,URINE NEGATIVE (NEGATIVE); COLOR,URINE LIGHT-YELLOW (YELLOW); GLUCOSE, URINE (UA) NEGATIVE (NEGATIVE); KETONES,URINE NEGATIVE (NEGATIVE); LEUKOCYTE ESTERASE ,URINE 250 Leu/uL (NEGATIVE); NITRATE,URINE NEGATIVE (NEGATIVE); OCCULT BLOOD,URINE NEGATIVE (NEGATIVE); PH,URINE 5.5 (5.0-8.0); PROTEIN,URINE NEGATIVE (NEGATIVE); UROBILINOGEN,URINE 0.2 mg/dL (0.2-1.0)
[2023-07-03 10:28] LABS: ADD UA MICROSCOPIC YES
[2023-07-03 10:49] LABS: BACTERIA,URINE RARE /HPF (None Seen); SQUAMOUS EPITHELIAL CELL,UR RARE /HPF (0-2); WBC,URINE 26-50 /HPF (0-1)
[~2023-07-07] VITALS: Ht 160 cm; Wt 4.6 kg
[2023-07-07] VITALS (10 sets, daily range): BP systolic 115–148; BP diastolic 50–97; PULSE 59–75; RESP 11–19
[~2023-07-07 06:02] MED LIST changes: -BUDE10.2 PO; +FLUT1BLS IH; +MUPI22OI2 TP; +NAPR-1023 PO; -TERI2.4P SQ; -UMEC62.5 PO
[2023-07-07] MEDS: 0.9%NACL 1000ML 1,000 ML IV ONE (06:55)
[2023-07-07] MEDS ORDERED: FOLI1CAP24 PO (06:59)
[2023-07-07] MEDS ORDERED: AEC81 PO (06:59)
[2023-07-07] MEDS ORDERED: TIOT4MIS5 IH (06:59)
[2023-07-07] MEDS ORDERED: LIDOCAINE HCL 400MG/20ML VIAL ONE (07:09)
[2023-07-07] MEDS ORDERED: NICARDIPINE 25MG INJ IV ONE (07:10)
[2023-07-07] MEDS ORDERED: IODIXANOL 320 MG/ML 100 ML VIAL ONE (07:10)
[2023-07-07] MEDS ORDERED: MIDAZOLAM HCL 1 MG/ML 2ML VIAL ONE (07:10)
[2023-07-07] MEDS ORDERED: HEPARIN 10,000 UNIT/10ML (1,000 UNIT/ML) VIAL ONE (07:10)
[2023-07-07] MEDS ORDERED: FENTANYL CITRATE PF 50 MCG/1 ML 2ML VIAL ONE (07:10)
[2023-07-07] MEDS ORDERED: NITROGLYCERIN 50MG VIAL ONE (07:11)
[2023-07-07] MEDS: 0.9%NACL 1000ML 1,000 ML IV SCH (10:00)
[2023-07-07] MEDS ORDERED: GLUCAGON 1MG KIT 1 MG ML IM PRN (10:00)
[2023-07-07] MEDS ORDERED: DEXTROSE 50%-WATER 50 ML DISP.SYRIN IV PRN (10:00)
== END 2023-07-07 13:47 | disposition home or self-care (01) ==
LOC: DAH 06:02
PROVIDERS: ATTEND Internal Medicine Cardiovascular Disease
DX: I70.248 Atherosclerosis of native arteries of left leg with ulceration of other part of lower leg (principal); I70.238 Atherosclerosis of native arteries of right leg with ulceration of other part of lower leg; L97.828 Non-pressure chronic ulcer of other part of left lower leg with other specified severity; I70.92 Chronic total occlusion of artery of the extremities; I71.40 Abdominal aortic aneurysm, without rupture, unspecified; J44.9 Chronic obstructive pulmonary disease, unspecified; I10 Essential (primary) hypertension; F17.210 Nicotine dependence, cigarettes, uncomplicated; Z79.01 Long term (current) use of anticoagulants; Z79.899 Other long term (current) drug therapy; Z90.89 Acquired absence of other organs; Z98.890 Other specified postprocedural states; Z82.49 Family history of ischemic heart disease and other diseases of the circulatory system; Z80.9 Family history of malignant neoplasm, unspecified; Z72.89 Other problems related to lifestyle
CPT/HCPCS: 80048; 83880; 85025; 85610; 85730; 87077; 87088; 87186; 81001; 36415 ×2; 71045; 93005; 75716; 85347; C9772; C1725 ×3; C1894 ×2; C1769 ×2; C1760; C1893; C1887; C2623; C9764; J3010; J3490 ×3; J7030; J1644 ×3; J2250; Q9967; A4215; A4335; A4222; A4221; A4663; A4216; A4606; A4223 ×3; A4554; 96360; 96361; 99156; 99157

== ENCOUNTER → 2023-07-08 | Outpatient (CLI) | payer MEDICARE ==
[~2023-07-08] MED LIST changes: +AEC81 PO; +CLOP75TA32 PO; +CLOPIDOGREL 300MG TAB ONE; +FOLI1CAP24 PO; +MIDAZOLAM HCL 1 MG/ML 2ML VIAL ONE; +TIOT4MIS5 IH
== END | disposition home or self-care (01) ==
LOC: SHCH 09:08
PROVIDERS: ATTEND Internal Medicine Cardiovascular Disease
DX: I71.40 Abdominal aortic aneurysm, without rupture, unspecified (principal)
CPT/HCPCS: 93978; J2250

== ENCOUNTER → 2023-08-26 | Outpatient (CLI) | payer MEDICARE ==
[~2023-08-26] MED LIST changes: -CLOPIDOGREL 300MG TAB ONE; +FAMO20TA8 PO; -MIDAZOLAM HCL 1 MG/ML 2ML VIAL ONE; -MUPI22OI2 TP
== END | disposition home or self-care (01) ==
LOC: SHCH 09:46
PROVIDERS: ATTEND Internal Medicine Cardiovascular Disease
DX: I71.40 Abdominal aortic aneurysm, without rupture, unspecified (principal)
CPT/HCPCS: 93306

== ENCOUNTER 2023-10-06 05:52 | Day surgery (SDC) | payer MEDICARE ==
[2023-10-02 10:35] LABS: BASOPHILS # (AUTO) 0.05 K/uL (0.00-0.20); BASOPHILS % (AUTO) 0.4 % (0.0-5.0); EOSINOPHILS # (AUTO) 0.24 K/uL (0.00-0.70); EOSINOPHILS % (AUTO) 1.7 % (0.0-8.0); HEMATOCRIT 45.3 % (36-48); IMMATURE GRANULOCYTE ABSOLUTE 0.08 K/uL (0-1); LYMPHOCYTES # (AUTO) 2.1 K/uL (1.0-4.8); LYMPHOCYTES % (AUTO) 14.7 % (21.0-51.0); MEAN CORPUSCULAR HEMOGLOBIN 29.5 pg (27.0-33.0); MEAN CORPUSCULAR HGB CONC 32.7 g/dL (32.0-36.0); MEAN CORPUSCULAR VOLUME 90.4 fL (79-99); MONOCYTES % (AUTO) 7.3 % (3.0-13.0); NEUTROPHILS # (AUTO) 10.5 K/uL (1.8-7.7); NEUTROPHILS % (AUTO) 75.3 % (40.0-77.0); PLATELET COUNT (AUTO) 369 K/uL (130-400); RED BLOOD CELL COUNT(AUTO) 5.01 MIL/uL (4.00-5.50); RED CELL DISTRIBUTION WIDTH 14.9 % (11.0-15.5); WHITE BLOOD COUNT (AUTO) 13.9 K/uL (4.8-10.8)
[2023-10-02 10:43] LABS: CREATININE 0.8 mg/dL (0.5-1.0); POTASSIUM 4.4 mmol/L (3.5-5.1)
[2023-10-02 10:45] VITALS: BP 138/67; PULSE 78; RESP 18
[2023-10-02 11:06] LABS: INR <= 0.93 (0.85-1.15); PROTHROMBIN TIME 10.9 SEC (9.6-11.6)
[2023-10-02 11:07] LABS: PARTIAL THROMBOPLASTIN TIME 27.5 SEC (26.3-35.5)
[2023-10-02 11:10] LABS: B-TYPE NATRIURETIC PEPTIDE 68 pg/mL (0-100)
[2023-10-06] VITALS (12 sets, daily range): BP systolic 114–162; BP diastolic 53–86; PULSE 61–78; RESP 14–18
[~2023-10-06] VITALS: Ht 160 cm; Wt 51.3 kg
[~2023-10-06 05:52] MED LIST changes: -FAMO20TA8 PO; -FOLI1CAP24 PO; -NAPR-1023 PO
[2023-10-06] MEDS ORDERED: FAMO20TA8 PO (06:47)
[2023-10-06] MEDS: 0.9%NACL 1000ML 1,000 ML IV ONE (06:56)
[2023-10-06] MEDS ORDERED: HEPARIN 10,000 UNIT/10ML (1,000 UNIT/ML) VIAL ONE (07:33)
[2023-10-06] MEDS ORDERED: FENTANYL CITRATE PF 50 MCG/1 ML 2ML VIAL ONE (07:33)
[2023-10-06] MEDS ORDERED: IODIXANOL 320 MG/ML 100 ML VIAL ONE (07:33)
[2023-10-06] MEDS ORDERED: NICARDIPINE 25MG INJ IV ONE (07:33)
[2023-10-06] MEDS ORDERED: LIDOCAINE HCL 400MG/20ML VIAL ONE (07:33)
[2023-10-06] MEDS ORDERED: MIDAZOLAM HCL 1 MG/ML 2ML VIAL ONE ×2 (07:33→08:56)
[2023-10-06] MEDS ORDERED: NITROGLYCERIN 50MG VIAL ONE (07:34)
[2023-10-06] MEDS ORDERED: IOHEXOL-350 50ML VIAL IV ONE (08:53)
[2023-10-06] MEDS ORDERED: CLOPIDOGREL 300MG TAB ONE (09:19)
[2023-10-06] MEDS ORDERED: 0.9%NACL 1000ML 1,000 ML IV SCH (09:30)
[2023-10-06] MEDS ORDERED: GLUCAGON 1MG KIT 1 MG ML IM PRN (09:30)
[2023-10-06] MEDS ORDERED: DEXTROSE 50%-WATER 50 ML DISP.SYRIN IV PRN (09:30)
== END 2023-10-06 13:35 | disposition home or self-care (01) ==
LOC: DAH 05:52
PROVIDERS: ATTEND Internal Medicine Cardiovascular Disease
DX: I70.248 Atherosclerosis of native arteries of left leg with ulceration of other part of lower leg (principal); L97.828 Non-pressure chronic ulcer of other part of left lower leg with other specified severity; I71.40 Abdominal aortic aneurysm, without rupture, unspecified; I49.3 Ventricular premature depolarization; J44.9 Chronic obstructive pulmonary disease, unspecified; I10 Essential (primary) hypertension; Z79.01 Long term (current) use of anticoagulants; Z79.899 Other long term (current) drug therapy; Z87.891 Personal history of nicotine dependence; Z90.89 Acquired absence of other organs; Z98.890 Other specified postprocedural states; Z82.49 Family history of ischemic heart disease and other diseases of the circulatory system; Z80.9 Family history of malignant neoplasm, unspecified
CPT/HCPCS: 80048; 83880; 85025; 85610; 85730; 36415; 71045; 93005; 75716; 37224; 85347; C9772; C1887; C1894 ×2; C1769 ×2; C1760; C2623; C1893; C1725 ×2; J3010; J3490 ×3; J7030; J1644 ×2; J2250 ×2; Q9967 ×2; A4215; A4335; A4222; A4221; A4663; A4216; A4606; A4223 ×3; A4554; 96360; 96361; 99156; 99157

== ENCOUNTER → 2024-04-28 | Outpatient (CLI) | payer MEDICARE ==
[~2024-04-28] MED LIST changes: +FAMO20TA8 PO
[2024-04-28 12:39] LABS: CHOLESTEROL 142 mg/dL (<200); HDL CHOLESTEROL 95 mg/dL (35-85); LDL DIRECT 39 mg/dL (0-99); TRIGLYCERIDES 41 mg/dL (30-200)
== END | disposition home or self-care (01) ==
LOC: LAB 10:38
PROVIDERS: ATTEND Internal Medicine Cardiovascular Disease
DX: E78.5 Hyperlipidemia, unspecified (principal)
CPT/HCPCS: 36415; 80061